=== PATIENT | female | born 2000 | race African-American/Black ===

== ENCOUNTER 2021-05-22 07:27 | Emergency (ER) | payer BC, OTHER ==
[~2021-05-22] VITALS: Ht 160 cm; Wt 59.0 kg
[~2021-05-22 07:27] MED LIST: ACCUNEB SO1.25 MG/1 INH; ALBUTEROL; AMOXICILLIN875 MG PO; AZITHROMYCIN 2250 MG PO; FLOVENT DISKU100 MCG; PREDNISONE 20 M20 M1 PO; PREDNISONE 20 M20 MG PO; VENTOLIN HFA 1818 GM INH
[2021-05-22] MEDS ORDERED: PROAIR HFA8.5 GM INH (11:28)
[2021-05-22] MEDS ORDERED: PREDNISONE 20 M20 MG PO (11:28)
[2021-05-22 11:59] VITALS: BP 116/63
== END 2021-05-22 11:55 | disposition home or self-care (01) ==
LOC: ER 07:27
DX: O99.512 Diseases of the respiratory system complicating pregnancy, second trimester (principal); J44.1 Chronic obstructive pulmonary disease with (acute) exacerbation; R05.9 Cough, unspecified; Z3A.15 15 weeks gestation of pregnancy; Z79.899 Other long term (current) drug therapy